=== PATIENT | male | born 1970 | race Hispanic/Latino ===

== ENCOUNTER 2017-09-18 13:22 | Emergency (ER) | payer OTHER ==
[~2017-09-18 13:22] MED LIST: ASPI-1181 PO; ATOR10 PO; LISI-617 PO
[2017-09-18] MEDS ORDERED: SODIUM CHLORIDE 0.9% 1000ML 1,000 ML IV ONE (13:47)
[2017-09-18] MEDS ORDERED: DiphenhydrAMINE HCL 50 MG/ML VIAL ONE (13:47)
[2017-09-18] MEDS ORDERED: FAMOTIDINE 20MG TAB 20 MG TAB ONE (13:48)
[2017-09-18] MEDS ORDERED: METHYLPREDNISOLONE SOD SUCC 125MG/2ML VIAL ONE (13:48)
== END 2017-09-18 15:21 | disposition home or self-care (01) ==
LOC: EDH 13:22
DX: T63.461A Toxic effect of venom of wasps, accidental (unintentional), initial encounter (principal); I25.10 Atherosclerotic heart disease of native coronary artery without angina pectoris; Z88.8 Allergy status to other drugs, medicaments and biological substances; Y92.89 Other specified places as the place of occurrence of the external cause
CPT/HCPCS: 96361; 96374; 96375; 99284; J1200; J2930; J7030

== ENCOUNTER 2024-06-08 01:54 | Emergency (ER) | payer BC ==
[~2024-06-08] VITALS: Ht 177.8 cm; Wt 77.1 kg
[~2024-06-08 01:54] MED LIST changes: -ASPI-1181 PO; +ASPI-1443 PO; -LISI-617 PO; +LISI5TAB21 PO
[2024-06-08] MEDS: ASPIRIN 325MG TAB PO ONE (02:17)
[2024-06-08 02:27] LABS: CREATININE 0.8 mg/dL (0.5-1.3); POTASSIUM 3.7 mmol/L (3.5-5.1)
[2024-06-08 02:35] LABS: MAGNESIUM 1.8 mg/dL (1.80-2.40)
[2024-06-08 02:38] LABS: BASOPHILS # (AUTO) 0.03 K/uL (0.00-0.20); BASOPHILS % (AUTO) 0.5 % (0.0-5.0); EOSINOPHILS # (AUTO) 0.08 K/uL (0.00-0.70); EOSINOPHILS % (AUTO) 1.3 % (0.0-8.0); HEMATOCRIT 47.4 % (42-54); IMMATURE GRANULOCYTE ABSOLUTE 0.01 K/uL (0-1); LYMPHOCYTES # (AUTO) 2.6 K/uL (1.0-4.8); LYMPHOCYTES % (AUTO) 41.7 % (21.0-51.0); MEAN CORPUSCULAR HEMOGLOBIN 33.7 pg (27.0-33.0); MEAN CORPUSCULAR VOLUME 96.3 fL (79-99); MONOCYTES # (AUTO) 0.5 K/uL (0.1-1.0); MONOCYTES % (AUTO) 8.5 % (3.0-13.0); NEUTROPHILS % (AUTO) 47.8 % (40.0-77.0); PLATELET COUNT (AUTO) 231 K/uL (130-400); RED BLOOD CELL COUNT(AUTO) 4.92 MIL/uL (4.50-6.20); RED CELL DISTRIBUTION WIDTH 12.2 % (11.0-15.5); WHITE BLOOD COUNT (AUTO) 6.2 K/uL (4.8-10.8)
[2024-06-08 03:11] LABS: B-TYPE NATRIURETIC PEPTIDE < 5 pg/mL (0-100)
[2024-06-08 04:04] VITALS: BP 130/82; PULSE 76; RESP 20; TEMP 98.7; O2SAT 100
--- NOTE | 2024-06-08 04:16 | ERN ---
ED Note History of Present Illness Stated Complaint: CHEST PAIN Chief Complaint: Chest Pain Time Seen by MD: 02:00 Allergies: Coded Allergies: No Known Drug Allergies (Verified Allergy, Unknown, 11/28/14) isosorbide (Unverified Allergy, Unknown, 06/08/24) Home Meds Reported Medications Lisinopril (Lisinopril) 5 Mg Tablet, 5 MG PO DAILY, TAB 08/01/15 Aspirin (Aspirin EC) 81 Mg Tablet.dr, 81 MG PO AM, TAB 11/28/14 Atorvastatin Calcium (LIPITOR) 20 Mg Tab, 20 MG PO HS, TAB 11/28/14 Past Medical History Dictation 53-year-old male with past medical history of high blood pressure, CAD (s/p cardiac stents) presents with chest pain x1 day duration. Patient states that he took some nitro and the pain alleviated itself earlier. Patient denies syncope, presyncope, productive cough nausea, vomiting diaphoresis, abdominal Past Medical History: CAD, [place] Surgical History: CABG, Other Surgical History Other: CARDIAC STENTS Review of System Dictation See HPI Initial Vital Sign VS Vital Signs Date Time Temp Pulse Resp B/P (MAP) Pulse Ox O2 Delivery O2 Flow Rate FiO2 06/08/24 01:56 98.4 73 18 135/88 98 Room Air 0 06/08/24 02:06 21 Physical Exam Dictation Uncomfortable appearing, normal BMI, lungs clear to auscultation, symmetrical breath sounds, regular rate and rhythm, no murmurs rubs or gallops, abdomen is soft, nontender, non peritoneal, in no x4, 5/5 strength in extremities x4 Results (Laboratory/Radiology) Laboratory/Radiology Laboratory Tests Test 06/08/24 02:03 White Blood Count 6.2 K/uL (4.8-10.8) Red Blood Count 4.92 MIL/uL (4.50-6.20) Hemoglobin 16.6 g/dL (14.0-18.0) Hematocrit 47.4 % (42-54) Mean Corpuscular Volume 96.3 fL (79-99) Mean Corpuscular Hemoglobin 33.7 pg (27.0-33.0) H Mean Corpuscular Hemoglobin Concent 35.0 g/dL (32.0-36.0) Red Cell Distribution Width 12.2 % (11.0-15.5) Platelet Count 231 K/uL (130-400) Mean Platelet Volume 10.5 fL (7.5-10.5) Immature Granulocyte % (Auto) 0.2 % (0-1) Neutrophils (%) (Auto) 47.8 % (40.0-77.0) Lymphocytes (%) (Auto) 41.7 % (21.0-51.0) Monocytes (%) (Auto) 8.5 % (3.0-13.0) Eosinophils (%) (Auto) 1.3 % (0.0-8.0) Basophils (%) (Auto) 0.5 % (0.0-5.0) Neutrophils # (Auto) 3.0 K/uL (1.8-7.7) Lymphocytes # (Auto) 2.6 K/uL (1.0-4.8) Monocytes # (Auto) 0.5 K/uL (0.1-1.0) Eosinophils # (Auto) 0.08 K/uL (0.00-0.70) Basophils # (Auto) 0.03 K/uL (0.00-0.20) Absolute Immature Granulocyte (auto 0.01 K/uL (0-1) Nucleated Red Blood Cells 0.0 % (0.0-0.19) D-Dimer Quantitative (PE/DVT) 243 ng/mL (0-500) Sodium Level 141 mmol/L (136-145) Potassium Level 3.7 mmol/L (3.5-5.1) Chloride Level 103 mmol/L (101-111) Carbon Dioxide Level 30 mmol/L (21-32) Blood Urea Nitrogen 11 mg/dL (7-18) Creatinine 0.8 mg/dL (0.5-1.3) Glomerular Filtration Rate Calc 106 mL/min (>90) Random Glucose 87 mg/dL (70-105) Total Calcium 9.1 mg/dL (8.5-10.1) Magnesium Level 1.80 mg/dL (1.80-2.40) Total Creatine Kinase 100 U/L (21-232) Troponin I High Sensitivity 4.1 ng/L (4-75) B-Type Natriuretic Peptide < 5 pg/mL (0-100) ED Course ED Course Orders Procedure Category Date Status Time Vital Signs Per CPOE 06/08/24 Transmitted Routine 02:00 B-Type Natriuretic LAB 06/08/24 Complete Peptide 02:00 12 Lead Ekg Tracing- EKG 06/08/24 Logged Technical 02:00 Oxygen By Nc/Pulse Ox CPOE 06/08/24 Transmitted 02:00 Maintain Iv CPOE 06/08/24 Transmitted 02:00 Iv Insertion CPOE 06/08/24 Transmitted 02:00 Cardiac Monitoring CPOE 06/08/24 Transmitted 02:00 Pulse Oximetry With CPOE 06/08/24 Transmitted Vs And Prn 02:00 Cbc With Differential LAB 06/08/24 Complete 02:00 Activity: Br W/Brp CPOE 06/08/24 Transmitted With Assist 02:00 Urinalysis Profile LAB 06/08/24 Logged 02:00 Troponin Poc Order LAB 06/08/24 Complete Only 02:00 Bedside Troponin-I LAB.ER 06/08/24 In Process (Poc) 02:00 Basic Metabolic Panel LAB 06/08/24 Complete 02:00 12 Lead Ekg Tracing- EKG 06/08/24 Logged Technical 02:02 Telemetry Monitoring CPOE 06/08/24 Transmitted 02:02 D-Dimer LAB 06/08/24 Complete 02:02 Chest 1vw RAD 06/08/24 Taken 02:02 Aspirin 325mg Tab PHA 06/08/24 Complete (Aspirin 325mg Tab) 02:30 Cardiac Panel LAB 06/08/24 Complete 02:03 Magnesium LAB 06/08/24 Complete 02:03 Current Medications Medications (Trade) Dose Ordered Sig/Isabel Route PRN Reason Start Time Stop Time Status Last Admin Dose Admin Aspirin (Aspirin 325mg Tab) 325 mg ONCE ONCE PO 06/08/24 02:30 06/08/24 02:31 DC 06/08/24 02:17 Vital Signs Date Time Temp Pulse Resp B/P (MAP) Pulse Ox O2 Delivery O2 Flow Rate FiO2 06/08/24 04:04 98.8 76 20 130/82 100 Room Air* 0 06/08/24 02:06 98.8 77 20 133/84 100 Room Air* 0 06/08/24 01:56 98.4 73 18 135/88 98 Room Air 0 Medical Decision Making MDM ddx: STEMI versus NSTEMI versus unstable angina versus CHF versus pulmonary embolism versus pneumothorax versus pneumonia All images i diagnosis interpreted by me unless otherwise stated EK06/08/2024; and 0149 Normal sinus rhythm 80 beats per minute, normal axis, normal intervals, no acute ischemic ST-T changes EKG shows no acute ischemic changes. Troponin within normal limits. Doubt STEMI. Doubt NSTEMI. No indication for repeat troponin, as his pain has been going on longer than an hours. Chest x-ray shows no acute cardiopulmonary pathology. Doubt pneumonia. Doubt CHF. Considered CTA of chest to assess for pulmonary embolism. Patient has D-dimer less than 500. Low clinical suspicio for PE. No indication for CTA of chest. Electrolytes within normal limits. Upon re-evaluation, patient states pain is fully resolved. Encouraged patient to stay and be evaluated by Cardiology. 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 Return precautions given. Invited and answered all questions prior to discharge. DX & DISP Disposition: Discharge Departure Impression: Primary Impression: Chest pain of uncertain etiology Condition: Stable Additional Instructions: Please return to the emergency department immediately if you have recurrent chest pain, shortness of breath, sweating, nausea, vomiting, abdominal pain, sudden loss of consciousness or sudden weakness. Please follow up with golf course superintendent as next available appointment Referrals: AUDIE JONES (PCP) Time of Disposition: 04:16 JOCY BURGESS DO Jun 08, 2024 04:16
[2024-06-08 04:27] LABS: APPEARANCE,URINE CLEAR (CLEAR); BILIRUBIN,URINE NEGATIVE (NEGATIVE); COLOR,URINE YELLOW (YELLOW); GLUCOSE, URINE (UA) NEGATIVE (NEGATIVE); KETONES,URINE >=80 mg/dL (NEGATIVE); LEUKOCYTE ESTERASE ,URINE NEGATIVE Leu/uL (NEGATIVE); NITRATE,URINE NEGATIVE (NEGATIVE); OCCULT BLOOD,URINE NEGATIVE (NEGATIVE); PH,URINE 5.5 (5.0-8.0); PROTEIN,URINE 10 mg/dL (NEGATIVE); UROBILINOGEN,URINE 0.2 mg/dL (0.2-1.0)
[2024-06-08 04:35] LABS: ADD UA MICROSCOPIC YES
[2024-06-08 04:37] LABS: MUCUS,URINE FEW LPF (None Seen); RBC,URINE 0-1 /HPF (0-1); SQUAMOUS EPITHELIAL CELL,UR RARE /HPF (0-2); URIC ACID CRYSTALS,URINE RARE /LPF (None Seen); WBC,URINE 0-1 /HPF (0-1)
--- NOTE | 2024-06-08 06:07 | EKG ---
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
--- NOTE | 2024-06-08 08:54 | HMCIMG ---
Exam Type: CHEST 1VW Clinical Information: k Comparison: None Findings: There is status post median sternotomy. The lungs are clear of infiltrates. The heart is normal in size. Impression: Clear lungs.
== END 2024-06-08 04:57 | disposition home or self-care (01) ==
LOC: EDH 01:54
DX: R07.89 Other chest pain (principal); I25.10 Atherosclerotic heart disease of native coronary artery without angina pectoris; Z79.899 Other long term (current) drug therapy; Z95.1 Presence of aortocoronary bypass graft; Z95.5 Presence of coronary angioplasty implant and graft; Z98.890 Other specified postprocedural states
CPT/HCPCS: 36415; 71045; 80048; 81001; 82550; 83735; 83880; 84484; 85025; 85378; 93005; 99284